=== PATIENT | male | born 1935 | race Caucasian/White ===

== ENCOUNTER 2019-09-05 08:14 | Day surgery (SDC) | payer OTHER ==
[2019-09-01 14:14] LABS: BASOPHILS % (AUTO) 0.7 % (0-1); EOSINOPHILS # (AUTO) 0.1 X10'3 (0-0.9); EOSINOPHILS % (AUTO) 2.2 % (0-6); LYMPHOCYTES # (AUTO) 1.1 X10'3 (1.1-4.8); LYMPHOCYTES % (AUTO) 17.2 % (21-51); MEAN CORPUSCULAR HEMOGLOBIN 31.7 PG (27.0-31.0); MEAN CORPUSCULAR HGB CONC 33.2 g/dL (33.0-36.5); MEAN CORPUSCULAR VOLUME 95.5 FL (78-98); MEAN PLATELET VOLUME 8.2 FL (7.4-10.4); MONOCYTES # (AUTO) 0.8 X10'3 (0-0.9); MONOCYTES % (AUTO) 12.5 % (2-12); NEUTROPHILS # (AUTO) 4.3 X10'3 (1.8-7.7); NEUTROPHILS % (AUTO) 67.4 % (42-75); PRE OP HEMATOCRIT 40.1 % (42.0-52.0); PRE OP HEMOGLOBIN 13.3 g/dL (14.0-17.9); PRE OP PLATELET COUNT 245 X10'3 (140-440); RED CELL DISTRIBUTION WIDTH 14.7 % (11.5-14.5)
[2019-09-01 14:18] LABS: ALBUMIN 3.3 G/DL (3.4-5.0); ALKALINE PHOSPHATASE 74 IU/L (46-116); BLOOD UREA NITROGEN 22 MG/DL (7-18); BUN/CREATININE RATIO 23.4 (5.4-32.0); CALCIUM 8.7 MG/DL (8.5-10.1); CHLORIDE 101 MMOL/L (99-107); CREATININE 0.94 MG/DL (0.60-1.10); PRE OP ALT 26 U/L (30-65); PRE OP ANION GAP 3 (8-16); PRE OP AST 25 U/L (10-37); PRE OP BILIRUB, TOTAL 0.5 MG/DL (0.0-1.0); PRE OP GLUCOSE 85 MG/DL (70-104); PRE OP POTASSIUM 4.5 MMOL/L (3.4-5.1); PRE OP SODIUM 136 MMOL/L (135-145); TOTAL CARBON DIOXIDE 32.2 MMOL/L (24-32); TOTAL PROTEIN 6.7 G/DL (6.4-8.2); eGFR 76 ML/MIN
[2019-09-05] VITALS (7 sets, daily range): BP systolic 144–185; BP diastolic 81–88
[~2019-09-05] VITALS: Ht 160 cm; Wt 67.0 kg
[~2019-09-05 08:14] MED LIST: AMLO5TAB16 PO; ASPI-1265 PO; ATOR10TA87 PO; FLO0.4C PO; LEVO25TA2 PO; NIACINAMIDE; NITR0.4T51; PANT40TA39 PO; SERT-153 PO; ceFAZolin 2gm in dextrose, iso 50 ML IV ONE; famotidine 20mg tablet PO ONE; ringers solution, lacted 1,000 ML IV SCH
[2019-09-05] MEDS ORDERED: fentaNYL/PF 50MCG/1 ML 2ML syringe ONE (11:32)
[2019-09-05] MEDS ORDERED: ringers solution, lacted 1,000 ML IV SCH (11:40)
[2019-09-05] MEDS ORDERED: morphine 2 MG/ML inj. syringe IV PRN (11:40)
[2019-09-05] MEDS ORDERED: HYDROmorphone inj. 0.5 MG/0.5 ML DISP.SYRIN IV PRN (11:40)
[2019-09-05] MEDS ORDERED: ondansetron/PF 4mg/2ml inj IV PRN (11:40)
[2019-09-05] MEDS ORDERED: sevoflurane 250ml liquid IH ONE (11:45)
[2019-09-05] MEDS ORDERED: propofol inj 20 ML IV ONE (12:09)
[2019-09-05] MEDS ORDERED: LIDOcaine 2% (20mg/ml) 5ml vial ONE (12:09)
[2019-09-05] MEDS ORDERED: ondansetron/PF 4mg/2ml inj ONE (12:18)
[2019-09-05] MEDS ORDERED: glycopyrrolate 0.2mg/ml inj ONE (12:18)
[2019-09-05] MEDS ORDERED: dexamethasone sod phosphate 4mg/ml inj. ONE (12:18)
--- NOTE | 2019-09-05 12:30 | NUR ---
Received from OR via [facility] , accompanied by Anesthesiologist AMOR and report given by Anesthesiolgist. PATIENT WITH STYLES CATHETER PRESENT WITH BLOODY URINE IN ATRIUM. VSS. DENIES PAIN. 10L MASK ON WITH 100% SATURATIONS. PIV 20G TO RIGHT UE RUNNING LR AT 100. Addendum: 09/05/19 at 1250 by Jonathan Willingham RN, RN Amended: Links added.
[2019-09-05] MEDS ORDERED: hydrALAZINE 20mg/ml inj. IV PRN (13:20)
[2019-09-05] MEDS ORDERED: hydrALAZINE 20mg/ml inj. IV ONE (13:20)
--- NOTE | 2019-09-05 13:30 | NUR ---
I HAVE REVIEWED D/C INSTRUCTIONS WITH PATIENT AND FAMILY AND THEY HAVE VERBALIZED UNDERSTANDING. PATIENT D/C HOME WITH ALL BELONGINGS AND FAMILY GAVE TRANSPORT HOME. VSS. PAIN TO HIP - PATIENT STATES THIS IS NORMAL. LEG BAG DONNED. NIGHT BAG SENT WITH PATIENT. DROVE PATIENT HOME. Addendum: 09/05/19 at 1411 by Jonathan Willingham RN, RN Amended: Links added.
[2019-09-05] MEDS ORDERED: HYDR-4353 PO (17:13)
== END 2019-09-05 13:30 | disposition home or self-care (01) ==
LOC: PAS 08:14
PROVIDERS: ATTEND Urology
DX: N35.014 Post-traumatic urethral stricture, male, unspecified (principal); N30.81 Other cystitis with hematuria; I10 Essential (primary) hypertension; F32.9 Major depressive disorder, single episode, unspecified; Z98.890 Other specified postprocedural states; Z86.73 Personal history of transient ischemic attack (TIA), and cerebral infarction without residual deficits; Z87.891 Personal history of nicotine dependence; Z85.46 Personal history of malignant neoplasm of prostate; Z11.59 Encounter for screening for other viral diseases; Z79.899 Other long term (current) drug therapy; Z87.440 Personal history of urinary (tract) infections
CPT/HCPCS: 36415; 52281; 71046; 80053; 82948; 85025; C1769; J0360; J1100; J2001; J2270; J2405; J2704; J3010; U0003; A4338; A4618; J3490; J7120

== ENCOUNTER 2019-09-05 15:59 | Emergency (ER) | payer OTHER ==
[~2019-09-05] VITALS: Ht 165.1 cm; Wt 65.9 kg
[~2019-09-05 15:59] MED LIST changes: -ceFAZolin 2gm in dextrose, iso 50 ML IV ONE; -famotidine 20mg tablet PO ONE; -ringers solution, lacted 1,000 ML IV SCH
[2019-09-05] MEDS ORDERED: HYDR-4353 PO (17:13)
--- NOTE | 2019-09-05 17:15 | NUR ---
PER [facility]ABEL[facility] CEDEÑO, ALL LABS EXCEPT TROPONIN CANCELLED.
[2019-09-05 18:06] VITALS: BP 157/73
== END 2019-09-05 18:08 | disposition home or self-care (01) ==
LOC: ER 16:00
DX: M25.551 Pain in right hip (principal); R07.89 Other chest pain; I25.10 Atherosclerotic heart disease of native coronary artery without angina pectoris; Z88.8 Allergy status to other drugs, medicaments and biological substances; Z79.82 Long term (current) use of aspirin; Z79.899 Other long term (current) drug therapy
CPT/HCPCS: 36415; 84484; 93005; 99284